=== PATIENT | female | born 2005 | race Caucasian/White ===

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

== ENCOUNTER 2024-09-26 09:31 | Emergency (ER) | payer MEDICAID ==
[~2024-09-26] VITALS: Ht 160 cm; Wt 192.0 kg
[2024-09-26 09:36] VITALS: TEMP 97.4
[2024-09-26] MEDS: IBUPROFEN 600 MG TABLET PO ONE (10:13)
[2024-09-26] MEDS: ACETAMINOPHEN 500 MG TABLET PO ONE (10:13)
[2024-09-26 11:00] VITALS: BP 139/84; PULSE 71; RESP 17; O2SAT 98
[2024-09-26] MEDS ORDERED: ACET-66 PO (11:25)
[2024-09-26] MEDS ORDERED: IBUP-1554 PO (11:25)
[2024-09-26] MEDS ORDERED: CLOT15CR29 TP (11:25)
[2024-09-27 07:45] LABS: GLUCOMETER DEV NAME(LOC) ER.7; GLUCOSE,POINT OF CARE 95 MG/DL (70-110)
== END 2024-09-26 11:40 | disposition home or self-care (01) ==
LOC: EMS 09:48
DX: B35.3 Tinea pedis (principal); M79.671 Pain in right foot; Z68.45 Body mass index [BMI] 70 or greater, adult
CPT/HCPCS: 82962; 99283